=== PATIENT | male | born 1955 | race Caucasian/White ===

== ENCOUNTER → 2024-05-06 08:57 | Outpatient (CLI) | payer OTHER, SELFPAY | LOC: WC 09:06 | PROVIDERS: PCP Family Medicine; Visit Provider Surgery | DX: H90.41 Sensorineural hearing loss, unilateral, right ear, with unrestricted hearing on the contralateral side (principal); H93.13 Tinnitus, bilateral | CPT/HCPCS: 99203; 99212 ==

== ENCOUNTER → 2024-05-07 08:16 | Outpatient (CLI) | payer SELFPAY | PROVIDERS: PCP Family Medicine; Visit Provider Surgery | DX: H90.41 Sensorineural hearing loss, unilateral, right ear, with unrestricted hearing on the contralateral side (principal); H93.13 Tinnitus, bilateral ==

== ENCOUNTER → 2024-05-08 08:07 | Outpatient (CLI) | payer SELFPAY | PROVIDERS: PCP Family Medicine; Visit Provider Surgery | DX: H90.41 Sensorineural hearing loss, unilateral, right ear, with unrestricted hearing on the contralateral side (principal); H93.13 Tinnitus, bilateral ==

== ENCOUNTER → 2024-05-09 08:06 | Outpatient (CLI) | payer SELFPAY | PROVIDERS: PCP Family Medicine; Visit Provider Surgery | DX: H90.41 Sensorineural hearing loss, unilateral, right ear, with unrestricted hearing on the contralateral side (principal); H93.13 Tinnitus, bilateral | CPT/HCPCS: 99183; G0277 ==

== ENCOUNTER → 2024-05-10 08:16 | Outpatient (CLI) | payer SELFPAY | PROVIDERS: PCP Family Medicine; Visit Provider Physician Assistant | DX: H90.41 Sensorineural hearing loss, unilateral, right ear, with unrestricted hearing on the contralateral side (principal); H93.13 Tinnitus, bilateral ==

== ENCOUNTER → 2024-05-13 08:17 | Outpatient (CLI) | payer SELFPAY | PROVIDERS: PCP Family Medicine; Visit Provider Surgery | DX: H90.41 Sensorineural hearing loss, unilateral, right ear, with unrestricted hearing on the contralateral side (principal); H93.13 Tinnitus, bilateral | CPT/HCPCS: 99183; G0277 ==

== ENCOUNTER → 2024-05-14 09:19 | Outpatient (CLI) | payer SELFPAY | PROVIDERS: PCP Family Medicine; Visit Provider Surgery | DX: H90.41 Sensorineural hearing loss, unilateral, right ear, with unrestricted hearing on the contralateral side (principal); H93.13 Tinnitus, bilateral | CPT/HCPCS: 99183; G0277 ==

== ENCOUNTER → 2024-05-16 11:14 | Outpatient (CLI) | payer SELFPAY | PROVIDERS: PCP Family Medicine; Visit Provider Surgery | DX: H90.41 Sensorineural hearing loss, unilateral, right ear, with unrestricted hearing on the contralateral side (principal); H93.13 Tinnitus, bilateral | CPT/HCPCS: 99183; G0277 ==

== ENCOUNTER → 2024-05-17 11:39 | Outpatient (CLI) | payer OTHER, SELFPAY ==
[2024-05-17 12:23] LABS: Influenza A - CEPHEID Flu A NEGATIVE (NEGATIVE); Influenza B - CEPHEID Flu B NEGATIVE (NEGATIVE); Respiratory Syncytial Virus Negative (Negative)
[2024-05-17 12:26] LABS: COVID-19 CEPHEID 4-PLEX PCR Negative (Negative)
== END ==
PROVIDERS: PCP Family Medicine; Visit Provider Physician Assistant Surgical
DX: R05.1 Acute cough (principal)
CPT/HCPCS: 0241U

== ENCOUNTER → 2024-05-17 11:42 | Outpatient (CLI) | payer OTHER, SELFPAY ==
--- NOTE | 2024-05-17 11:43 | DI.RAD.S_ITS ---
PROCEDURE: XR CHEST 2V INDICATIONS: Cough, SOB TECHNIQUE: 2 views of the chest were acquired. COMPARISON: None. FINDINGS: Surgical changes and devices: Upper thoracic vertebroplasty. Surgical clips projecting over the upper mediastinum/lower neck.. Lungs and pleura: Lungs are clear. No pleural effusions or pneumothorax. Mediastinum: Mediastinal contours are normal. Heart size is normal. Bones and chest wall: No suspicious bony abnormalities. Soft tissues appear unremarkable. IMPRESSION: No acute cardiopulmonary abnormality is seen. Dictated by: Kobe Hale M.D. on 05/17/2024 at 12:17 Approved by: Kobe Hale M.D. on 05/17/2024 at 12:21
== END ==
PROVIDERS: PCP Family Medicine; Referring Provider Physician Assistant Surgical; Visit Provider Physician Assistant Surgical
DX: R05.1 Acute cough (principal)
CPT/HCPCS: 0241U; 71046

== ENCOUNTER → 2024-05-21 09:02 | Outpatient (CLI) | payer OTHER, SELFPAY | PROVIDERS: PCP Family Medicine; Visit Provider Surgery | DX: H90.41 Sensorineural hearing loss, unilateral, right ear, with unrestricted hearing on the contralateral side (principal); H93.13 Tinnitus, bilateral | CPT/HCPCS: 99183; G0277 ==

== ENCOUNTER → 2024-05-22 07:58 | Outpatient (CLI) | payer SELFPAY | LOC: WC 07:58 | PROVIDERS: PCP Family Medicine; Visit Provider Surgery | DX: H90.41 Sensorineural hearing loss, unilateral, right ear, with unrestricted hearing on the contralateral side (principal); H93.13 Tinnitus, bilateral | CPT/HCPCS: 99211; 99213 ==